=== PATIENT | male | born 1980 | race African-American/Black ===

== ENCOUNTER 2017-11-13 10:59 | Emergency (ER) | payer MEDICAID ==
[~2017-11-13] VITALS: Ht 175.3 cm; Wt 85.0 kg
[2017-11-13] MEDS ORDERED: HYDROCODONE/ACETAMINOPHEN 5/325MG TABLET PO ONE (12:00)
[2017-11-13] MEDS ORDERED: MORPHINE SULFATE 10 MG/ML CPJ IM ONE (12:45)
[2017-11-13] MEDS ORDERED: LIDOCAINE HCL 2% 5ML SYRINGE IV ONE (12:45)
[2017-11-13] MEDS ORDERED: CEPHALEXIN 500MG CAPSULE PO ONE (12:45)
[2017-11-13] MEDS ORDERED: ONDANSETRON 4MG ODT PO ONE (12:45)
[2017-11-13] MEDS ORDERED: LIDOCAINE HCL/PF 2% 20 MG/ML 10ML VIAL IJ SCH (13:15)
[2017-11-13 15:55] VITALS: BP 112/69
== END 2017-11-13 16:01 | disposition home or self-care (01) ==
LOC: ER 11:18
DX: S68.616A Complete traumatic transphalangeal amputation of right little finger, initial encounter (principal); W23.0XXA Caught, crushed, jammed, or pinched between moving objects, initial encounter; Y93.89 Activity, other specified; Y92.89 Other specified places as the place of occurrence of the external cause; Y99.8 Other external cause status
CPT/HCPCS: 26951; 96372; 99285; J2270; J3490; Q0162; X7700; Z7610; 26236; 99284